=== PATIENT | female | born 1980 | race Caucasian/White ===

== ENCOUNTER 2020-09-10 13:14 | Emergency (ER) | payer OTHER ==
[~2020-09-10] VITALS: Ht 165.1 cm; Wt 68.0 kg
[2020-09-10] MEDS ORDERED: METHADOSE10 MG/1 ML PO (13:40)
[2020-09-10 14:07] LABS: ABSOLUTE BASOPHILS 0.1 thou/uL (0.0-0.2); ABSOLUTE LYMPHOCYTES 2.4 thou/uL (0.8-5.3); ABSOLUTE MONOCYTES 1.1 thou/uL (0.0-1.2); ABSOLUTE NEUTROPHILS 9.3 thou/uL (1.6-8.1); BASOPHILS 0.6 %; EOSINOPHILS 0.2 %; HEMATOCRIT 44.1 % (37.0-47.0); HEMOGLOBIN 14.7 gm/dL (12.0-15.0); LYMPHOCYTES 18.8 %; MCH 30.6 pg (26.0-34.0); MCHC 33.3 g/dL (28.0-37.0); MONOCYTES 8.2 %; MPV 10.3 fl. (7.2-11.1); NUCLEATED RBCS 0 /100WBC; PLATELET COUNT* 175 thou/uL (150-400); POLYS 72.2 %; WBC 12.8 thou/uL (4.0-11.0)
[2020-09-10 14:18] LABS: CALCIUM 9.2 mg/dL (8.5-10.1); CREATININE 0.7 mg/dL (0.6-1.3); POTASSIUM 3.3 mmol/L (3.5-5.1)
[2020-09-10 14:22] LABS: ALBUMIN 3.7 g/dL (3.4-5.0); TOTAL BILIRUBIN 0.6 mg/dL (<0.1-1.0); TOTAL PROTEIN 7.4 g/dL (6.4-8.2)
[2020-09-10] MEDS ORDERED: CLEOCIN HCL150 MG PO (16:02)
[2020-09-10 16:48] VITALS: BP 96/43
== END 2020-09-10 16:49 | disposition home or self-care (01) ==
LOC: M.ERS 13:14
PROVIDERS: Nurse Practitioner Family
DX: K04.7 Periapical abscess without sinus (principal)